=== PATIENT | female | born 1975 | race Caucasian/White ===

== ENCOUNTER 2017-06-08 23:23 | Emergency (ER) | payer MEDICARE ==
[~2017-06-08] VITALS: Ht 154.9 cm; Wt 59.0 kg
[2017-06-08 23:40] VITALS: BP 155/98
[2017-06-09] MEDS ORDERED: HYDROcodone/APAP 5/325MG 1 TAB TABLET PO ONE (00:15)
[2017-06-09] MEDS ORDERED: IBUPROFEN 600 MG TABLET. PO ONE (00:15)
[2017-06-09] MEDS ORDERED: CYCLOBENZAPRINE 10 MG TABLET. PO ONE (00:15)
[2017-06-09] MEDS ORDERED: IBUP-1007 PO (01:30)
[2017-06-09] MEDS ORDERED: HYDR-971 PO (01:30)
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
== END 2017-06-09 01:48 | disposition home or self-care (01) ==
LOC: ER 23:23
DX: S63.502A Unspecified sprain of left wrist, initial encounter (principal); F41.9 Anxiety disorder, unspecified; F32.9 Major depressive disorder, single episode, unspecified; I10 Essential (primary) hypertension; F43.10 Post-traumatic stress disorder, unspecified; Z90.710 Acquired absence of both cervix and uterus; Z88.2 Allergy status to sulfonamides; V43.92XA Unspecified car occupant injured in collision with other type car in traffic accident, initial encounter; Y93.89 Activity, other specified; Y92.410 Unspecified street and highway as the place of occurrence of the external cause; Y99.8 Other external cause status
CPT/HCPCS: 73110; 73130; 99284

== ENCOUNTER → 2017-11-17 | Outpatient (CLI) | payer MEDICARE | END | disposition home or self-care (01) | LOC: CT 10:59 | DX: M41.84 Other forms of scoliosis, thoracic region (principal); M19.011 Primary osteoarthritis, right shoulder; Q76.49 Other congenital malformations of spine, not associated with scoliosis | CPT/HCPCS: 72128; 73030 ==

== ENCOUNTER → 2020-07-20 | Outpatient (CLI) | payer OTHER ==
[~2020-07-20] MED LIST: HYDR-3164 PO; IBUP-1007 PO
--- NOTE | 2020-07-20 16:24 | RAD ---
INDICATION: 45 years of age asymptomatic female patient presents for screening mammography. TECHNIQUE: Full field craniocaudal and mediolateral oblique images of both breasts were obtained using digital technique with tomosynthesis and also analyzed with computer-aided detection software. COMPARISON: This is a baseline examination. . BREAST COMPOSITION: Category B: There are scattered fibroglandular densities. FINDINGS: Benign calcifications are present. No suspicious masses, microcalcifications or architectural distortion is present to suggest malignancy in either breast. The visualized axillae are unremarkable. IMPRESSION: No mammographic evidence of malignancy. RECOMMENDATION: Annual screening mammography is recommended, unless clinically indicated sooner based on symptoms or change in physical exam. BIRADS 2: BENIGN This study was interpreted with the benefit of Computerized Aided Detection (CAD). Patient information is entered into the reminder system with a target due date for the next screening mammogram. Mammography is the most sensitive method for finding small breast cancers, but it does not detect them all and is not a substitute for careful clinical examination. A negative mammogram does not negate a clinically suspicious finding and should not result in delay in biopsying a clinically suspicious abnormality. "Our facility is accredited by the [employer] Mammography Program." Electronically signed by: Endy David MD (07/20/2020 4:21 PM) [facility]
== END | disposition home or self-care (01) ==
LOC: MAMMO 12:53
PROVIDERS: ATTEND Obstetrics & Gynecology
DX: Z12.31 Encounter for screening mammogram for malignant neoplasm of breast (principal); N64.89 Other specified disorders of breast
CPT/HCPCS: 77063; 77067

== ENCOUNTER 2020-10-08 15:17 | Emergency (ER) | payer OTHER ==
[~2020-10-08] VITALS: Ht 154.9 cm; Wt 63.0 kg
[2020-10-08 15:48] VITALS: BP 148/16
--- NOTE | 2020-10-08 16:06 | ED.ADGEN ---
Past Medical History Past Medical History: Anxiety, Depression, Hypertension, Other Additional Past Medical Histor: PTSD, PSEUDOTUMORCEREBRI Past Surgical History: Hysterectomy, Other Additional Past Surgical Histo: BRAIN SX X 3, BREAST REDUCTION Smoking Status: Never Smoker Alcohol Use: Occasionally Drug Use: None General Adult EDM: Chief Complaint: LOWEREXTREMITY INJURY HPI: HPI: Patient is a 45 year old female who arrives ambulatory to the emergency department complaint of left knee pain. Patient reportedly injured her left knee 4 days previously while moving a dresser. Patient reports in the process of trying to lift a dresser she felt her kneecap move laterally into her knee move medially. Patient states that she contacted her primary care physician who advised that she utilize rest, ice, compression as well as elevation. Patient states she was told to come to the emergency department for imaging should that not help with her pain. The patient states she has swelling as well and is concerned she may have torn something in her knee. She denies injury otherwise. She is awake, alert and nontoxic-appearing. Review of Systems: Review of Systems: Constitutional: Denies fever or chills. [] Eyes: Denies change in visual acuity. [] HENT: Denies nasal congestion or sore throat. [] Respiratory: Denies cough or shortness of breath. [] Cardiovascular: Denies chest pain or edema. [] GI: Denies abdominal pain, nausea, vomiting, bloody stools or diarrhea. [] : Denies dysuria. [] Musculoskeletal: Reports joint pain. Denies back pain. [] Integument: Denies rash. [] Neurologic: Denies headache, focal weakness or sensory changes. [] Endocrine: Denies polyuria or polydipsia. [] Lymphatic: Denies swollen glands. [] Psychiatric: Denies depression or anxiety. [] Family History: Family History: Noncontributory Allergies: Allergies: Allergies Coded Allergies Type Severity Reaction Last Updated Verified Sulfa (Sulfonamide Antibiotics) Allergy Unknown 06/09/17 Yes Physical Exam: PE: Constitutional: Well developed, well nourished, no acute distress, non-toxic appearance. [] HENT: Normocephalic, atraumatic, bilateral external ears normal, oropharynx moist, no oral exudates, nose normal. [] Eyes: PERRLA, EOMI, conjunctiva normal, no discharge. [] Neck: Normal range of motion, no tenderness, supple, no stridor. [] Cardiovascular:Heart rate regular rhythm, no murmur [] Lungs & Thorax: Bilateral breath sounds clear to auscultation [] Abdomen: Bowel sounds normal, soft, no tenderness, no masses, no pulsatile masses. [] Skin: Warm, dry, no erythema, no rash. [] Back: No tenderness, no CVA tenderness. [] Extremities: Patient has tenderness with minimal swelling of the left knee. The kneecap is in place and the patient has full range of motion. There is othe rwise no cyanosis, no clubbing, ROM intact or edema. [] Neurologic: Alert and oriented X 3, normal motor function, normal sensory function, no focal deficits noted. [] Psychologic: Affect normal, judgement normal, mood normal. [] Current Patient Data: Vital Signs: Vital Signs Date Time Temp Pulse Resp B/P (MAP) Pulse Ox O2 Delivery O2 Flow Rate FiO2 10/08/20 15:48 98.7 78 12 148/16 (60) 98 Room Air 98.7 EKG: EKG: [] Heart Score: Risk Factors: Risk Factors: DM, Current or recent (<one month) smoker, HTN, HLP, family history of CAD, obesity. Risk Scores: Score 0 - 3: 2.5% MACE over next 6 weeks - Discharge Home Score 4 - 6: 20.3% MACE over next 6 weeks - Admit for Clinical Observation Score 7 - 10: 72.7% MACE over next 6 weeks - Early Invasive Strategies Radiology/Procedures: Radiology/Procedures: [] Impression: [facility] [address] [place], [place] [id number] IMAGING REPORT Signed PATIENT: JESENIA ADAMS ACCOUNT: [id number] : 1975 LOCATION: ER AGE: 45 SEX: F EXAM STATUS: REG ER ORD. PHYSICIAN: TRINH GR DO REASON: Pain/injury PROCEDURE: KNEE LEFT 3V Exam: Left knee 3 views INDICATION: Pain/injury TECHNIQUE: Frontal, lateral and oblique views of the left knee Comparisons: None FINDINGS: There is a small suprapatellar effusion. Bone mineralization is normal. No acute or healed fractures. Joint spaces are well-maintained. IMPRESSION: Small suprapatellar fusion without underlying osseous abnormality identified. Electronically signed by: Lonny Clayton MD (10/08/2020 4:31 PM) [facility] DICTATED and SIGNED BY: LONNY CLAYTON MD DATE: 10/08/20 [id number] Course & Med Decision Making: Course & Med Decision Making Pertinent Labs and Imaging studies reviewed. (See chart for details) [] Dragon Disclaimer: Dragon Disclaimer: This electronic medical record was generated, in whole or in part, using a voice recognition dictation system. Departure Departure Impression: Primary Impression: Injury of left knee Disposition: 01 DC HOME SELF CARE/HOMELESS Condition: STABLE Referrals: SUZANNA TOBAR MD (PCP) Patient Instructions: Combined Knee Ligament Sprain-SportsMed, Knee - Cartilage (Meniscus) Injury, Knee - Ligament Injury, Arthroscopy, Knee - Meniscus Injury, Arthroscopy, Care After, Knee - Patella Problems Scripts Tramadol Hcl (ULTRAM) 50 Mg Tablet 50 MG PO Q6HRS PRN for PAIN for 3 Days, #12 TAB 0 Refills Prov: TRINH GR DO 10/08/20 TRINH GR DO Oct 08, 2020 16:06
--- NOTE | 2020-10-08 16:34 | RAD ---
Exam: Left knee 3 views INDICATION: Pain/injury TECHNIQUE: Frontal, lateral and oblique views of the left knee Comparisons: None FINDINGS: There is a small suprapatellar effusion. Bone mineralization is normal. No acute or healed fractures. Joint spaces are well-maintained. IMPRESSION: Small suprapatellar fusion without underlying osseous abnormality identified. Electronically signed by: Lonny Vaz MD (10/08/2020 4:31 PM) [facility]
[2020-10-08] MEDS ORDERED: TRAM-48 PO (16:41)
== END 2020-10-08 17:00 | disposition home or self-care (01) ==
LOC: ER 15:17
DX: S89.82XA Other specified injuries of left lower leg, initial encounter (principal); R60.0 Localized edema; F41.9 Anxiety disorder, unspecified; F32.9 Major depressive disorder, single episode, unspecified; I10 Essential (primary) hypertension; Z90.710 Acquired absence of both cervix and uterus; Z98.890 Other specified postprocedural states; Z88.2 Allergy status to sulfonamides; X50.0XXA Overexertion from strenuous movement or load, initial encounter; Y93.89 Activity, other specified; Y92.89 Other specified places as the place of occurrence of the external cause; Y99.8 Other external cause status
CPT/HCPCS: 29505; 73562; 99283